=== PATIENT | male | born 1950 | race Caucasian/White ===

== ENCOUNTER 2018-10-14 11:28 | Emergency (ER) | payer MEDICARE ==
[2018-10-14] MEDS: BISACODYL 10 MG SUPP PR (13:00)
== END 2018-10-14 14:12 | disposition home or self-care (01) ==
LOC: FTE 11:28
DX: K64.9 Unspecified hemorrhoids (principal); I10 Essential (primary) hypertension
CPT/HCPCS: 99284

== ENCOUNTER 2018-11-02 10:07 | Emergency (ER) | payer MEDICARE | END 2018-11-02 11:50 | disposition home or self-care (01) | LOC: FTE 10:07 | DX: M54.42 Lumbago with sciatica, left side (principal); F41.9 Anxiety disorder, unspecified; I10 Essential (primary) hypertension; Z85.9 Personal history of malignant neoplasm, unspecified | CPT/HCPCS: 99283 ==